=== PATIENT | male | born 1940 | race African-American/Black ===

== ENCOUNTER 2021-05-17 15:35 | Inpatient (IN) | payer BC, MEDICARE ==
[~2021-05-17] VITALS: Ht 180.3 cm; Wt 81.6 kg
[2021-05-17] MEDS: SODIUM CHLORIDE 0.9% 1,000 ML IV SCH (03:00)
[~2021-05-17 15:35] MED LIST: LEVO500T89 PO; SIMV10TA97 PO; SUCR1TAB PO
[2021-05-17] MEDS ORDERED: NAPROXEN 250MG TABLET PO ONE (17:30)
[2021-05-17] MEDS ORDERED: MORPHINE SULFATE 4 MG/ML CPJ (NOT FOR IM USE) IV STA (18:19)
[2021-05-17] MEDS ORDERED: ONDANSETRON HCL 4MG/2ML INJ IV STA (18:19)
[2021-05-17] MEDS ORDERED: KETOROLAC 30MG/ML VIAL IV STA (18:19)
[2021-05-17 18:39] LABS: BASOPHILS % 0.5 % (0.0-2.0); EOSINOPHILS % 3.4 % (0.0-5.0); HEMATOCRIT. 42.9 % (42.0-52.0); HEMOGLOBIN. 14.1 g/dL (14.0-18.0); LYMPHOCYTES % 18.8 % (20.0-50.0); MEAN CORPUSCULAR HEMOGLOBIN 26.7 pg (28.0-32.0); MEAN PLATELET VOLUME 8.4 fl (7.4-10.4); MONOCYTES % 11.1 % (2.0-8.0); NEUTROPHILS % 66.2 % (40.0-76.0); PLATELET 170 x1000/uL (130-400); RED BLOOD CELL COUNT 5.29 mill/uL (4.7-6.1); RED CELL DISTRIBUTION WIDTH 14.4 % (11.6-14.6)
[2021-05-17 18:44] LABS: CHLORIDE 103 mEq/L (98-107)
[2021-05-17 18:50] LABS: PROTHROMBIN TIME 10.4 sec (9.6-11.0)
[2021-05-17] MEDS ORDERED: ONDANSETRON HCL 4MG/2ML INJ IV PRN (19:45)
[2021-05-17] MEDS ORDERED: ACETAMINOPHEN 325MG TABLET PO PRN (19:45)
[2021-05-17] MEDS ORDERED: ZOLPIDEM TARTRATE 5MG TABLET PO PRN (19:45)
[2021-05-17] MEDS ORDERED: DIPHENHYDRAMINE 50MG/ML VIAL IV PRN (19:45)
[2021-05-17] MEDS ORDERED: CLONIDINE 0.1MG TABLET PO PRN (19:45)
[2021-05-17] MEDS ORDERED: DEXTROSE 50% WATER 50ML SYRINGE IV PRN (19:45)
[2021-05-17] MEDS: BLOOD SUGAR DIAGNOSTIC STRIP TEST SCH (21:00)
[2021-05-17] MEDS ORDERED: INSULIN GLARGINE UD 100 UNITS/ML SYR SUBCUT SCH (22:00)
[2021-05-17] MEDS: SODIUM CHLORIDE 0.9% INJ 3ML FLUSH IVF SCH (22:00)
[2021-05-18] MEDS: SUCRALFATE 1 G/10 ML UDC PO SCH ×3 (00:47→21:31)
[2021-05-18 01:30] VITALS: BP 132/76
[2021-05-18] MEDS: SODIUM CHLORIDE 0.9% 1,000 ML IV SCH (03:00)
[2021-05-18] MEDS ORDERED: INSU100I13 SUBCUT (03:25)
[2021-05-18 04:00] VITALS: BP 129/53
[2021-05-18] MEDS: SODIUM CHLORIDE 0.9% INJ 3ML FLUSH IVF SCH ×3 (06:36→21:32)
[2021-05-18] MEDS: BLOOD SUGAR DIAGNOSTIC STRIP TEST SCH ×4 (06:36→20:11)
[2021-05-18 08:00] VITALS: BP 119/55
[2021-05-18] MEDS: INSULIN LISPRO 100 UNITS/ML SUBCUT SCH ×5 (08:28→21:31)
[2021-05-18 12:00] VITALS: BP 143/68
[2021-05-18 16:00] VITALS: BP 144/75
[2021-05-18 20:00] VITALS: BP 124/59
[2021-05-18] MEDS: INSULIN GLARGINE UD 100 UNITS/ML SYR SUBCUT SCH (21:32)
[2021-05-18] MEDS: ACETAMINOPHEN 325MG TABLET PO PRN (23:46)
[2021-05-19] VITALS: BP 128/59
[2021-05-19] MEDS: ACETAMINOPHEN 325MG TABLET PO PRN (00:46)
[2021-05-19 04:00] VITALS: BP 135/74
[2021-05-19] MEDS: BLOOD SUGAR DIAGNOSTIC STRIP TEST SCH ×4 (06:12→21:00)
[2021-05-19] MEDS: SODIUM CHLORIDE 0.9% INJ 3ML FLUSH IVF SCH ×3 (06:12→22:53)
[2021-05-19] MEDS: INSULIN LISPRO 100 UNITS/ML SUBCUT SCH ×4 (06:14→22:52)
[2021-05-19] MEDS ORDERED: MORPHINE SULFATE/PF 1MG/ML 10ML AMP ONE (06:34)
[2021-05-19] MEDS ORDERED: EPINEPHRINE 1:1000 1 MG/ML AMP ONE (06:35)
[2021-05-19] MEDS ORDERED: LIDOCAINE HCL/EPINEPHRINE 1%-EPI 1:100,000 20 ML VIAL ONE (06:35)
[2021-05-19] MEDS ORDERED: BUPIVACAINE HCL/PF 0.25% (2.5MG/ML) 10ML ONE (06:35)
[2021-05-19] MEDS ORDERED: KETOROLAC 30MG/ML VIAL ONE (06:35)
[2021-05-19] MEDS ORDERED: POLYMYXIN B SULFATE 500000 UNITS/VIAL ONE (06:36)
[2021-05-19] MEDS ORDERED: BUPIVACAINE HCL/PF 0.5% (5MG/ML) 10ML ONE (06:36)
[2021-05-19] MEDS ORDERED: VANCOMYCIN HCL 1 GM/VIAL ONE (06:36)
[2021-05-19] MEDS ORDERED: ROPIVACAINE HCL 10MG/ML 20 ML VIAL EPI ONE ×2 (06:36→08:22)
[2021-05-19] MEDS ORDERED: TRANEXAMIC ACID 1,000 MG in SODIUM CHLORIDE 0.9% 100 ML IV SCH (07:00)
[2021-05-19] MEDS ORDERED: FENTANYL CITRATE/PF 50MCG/ML 2ML VIAL ONE ×2 (07:43→09:15)
[2021-05-19] MEDS ORDERED: NEOSTIGMINE METHYLSULFATE 1MG/ML 10 ML VIAL ONE (07:43)
[2021-05-19] MEDS ORDERED: ROCURONIUM BROMIDE 10MG/ML VIAL 5ML IV ONE (07:43)
[2021-05-19] MEDS ORDERED: PROPOFOL 200MG/20ML VIAL IV ONE (07:43)
[2021-05-19] MEDS ORDERED: SODIUM CHLORIDE 0.9% 10ML VIAL ONE (07:44)
[2021-05-19] MEDS ORDERED: SUCCINYLCHOLINE CHLORIDE 200MG/10ML IV ONE (07:44)
[2021-05-19] MEDS ORDERED: GLYCOPYRROLATE 0.2 MG/ML 2ML VIAL ONE (07:44)
[2021-05-19] MEDS ORDERED: PHENYLEPHRINE HCL 10 MG/ML 1ML (IV VIAL) IV ONE (07:44)
[2021-05-19] MEDS ORDERED: METOCLOPRAMIDE HCL 10MG/2ML VIAL ONE (07:44)
[2021-05-19] MEDS ORDERED: MIDAZOLAM HCL 2 MG/2 ML VIAL ONE (07:44)
[2021-05-19] MEDS ORDERED: ONDANSETRON HCL 4MG/2ML INJ ONE (07:44)
[2021-05-19] MEDS ORDERED: CEFAZOLIN SODIUM 1000MG/VIAL ONE (07:44)
[2021-05-19] MEDS: SUCRALFATE 1 G/10 ML UDC PO SCH ×2 (09:00→22:46)
[2021-05-19] MEDS ORDERED: HYDROMORPHONE HCL/PF 2MG/ML CPJ IV PRN (09:15)
[2021-05-19] MEDS ORDERED: ONDANSETRON HCL 4MG/2ML INJ IV PRN (09:15)
[2021-05-19] MEDS ORDERED: SODIUM CHLORIDE 0.9% 1,000 ML IV ONE (09:15)
[2021-05-19] MEDS ORDERED: MORPHINE SULFATE 2 MG/ML CPJ (NOT FOR IM USE) IV PRN (09:15)
[2021-05-19] MEDS ORDERED: MEPERIDINE HCL/PF 25MG/ML CPJ IV PRN ×2 (09:15)
[2021-05-19] MEDS ORDERED: KETOROLAC 30MG/ML VIAL IV PRN (09:30)
[2021-05-19] MEDS ORDERED: CEFAZOLIN 1000MG PREMIX 50 ML IV SCH (09:30)
[2021-05-19 12:00] VITALS: BP 130/66
[2021-05-19] MEDS: CEFAZOLIN 1000MG PREMIX 50 ML IV SCH ×2 (14:53→22:53)
[2021-05-19 16:00] VITALS: BP 133/78
[2021-05-19 20:00] VITALS: BP 137/70
[2021-05-19] MEDS: INSULIN GLARGINE UD 100 UNITS/ML SYR SUBCUT SCH (22:00)
[2021-05-20] VITALS: BP 135/69
[2021-05-20 04:00] VITALS: BP 140/69
[2021-05-20] MEDS: CEFAZOLIN 1000MG PREMIX 50 ML IV SCH ×3 (06:21→21:32)
[2021-05-20] MEDS: SODIUM CHLORIDE 0.9% INJ 3ML FLUSH IVF SCH ×3 (06:21→21:29)
[2021-05-20] MEDS: BLOOD SUGAR DIAGNOSTIC STRIP TEST SCH ×4 (06:26→20:56)
[2021-05-20 08:00] VITALS: BP 123/70
[2021-05-20] MEDS: ACETAMINOPHEN 325MG TABLET PO PRN (08:08)
[2021-05-20] MEDS: INSULIN LISPRO 100 UNITS/ML SUBCUT SCH ×4 (08:12→21:30)
[2021-05-20] MEDS: SUCRALFATE 1 G/10 ML UDC PO SCH ×2 (09:00→21:00)
[2021-05-20 12:00] VITALS: BP 119/65
[2021-05-20 16:00] VITALS: BP 143/72
[2021-05-20 20:00] VITALS: BP 140/75
[2021-05-20] MEDS: INSULIN GLARGINE UD 100 UNITS/ML SYR SUBCUT SCH (21:31)
[2021-05-21] VITALS: BP 131/68
[2021-05-21 04:00] VITALS: BP 129/74
[2021-05-21] MEDS: CEFAZOLIN 1000MG PREMIX 50 ML IV SCH ×2 (05:33→14:49)
[2021-05-21] MEDS: BLOOD SUGAR DIAGNOSTIC STRIP TEST SCH ×4 (06:27→21:11)
[2021-05-21 08:03] VITALS: BP 124/73
[2021-05-21] MEDS: INSULIN LISPRO 100 UNITS/ML SUBCUT SCH ×4 (08:15→21:33)
[2021-05-21] MEDS: SUCRALFATE 1 G/10 ML UDC PO SCH ×2 (09:00→20:17)
[2021-05-21 11:45] VITALS: BP 129/75
[2021-05-21] MEDS: SODIUM CHLORIDE 0.9% INJ 3ML FLUSH IVF SCH ×2 (14:50→21:11)
[2021-05-21 16:13] VITALS: BP 131/80
[2021-05-21 20:00] VITALS: BP 140/69
[2021-05-21] MEDS: INSULIN GLARGINE UD 100 UNITS/ML SYR SUBCUT SCH (21:34)
[2021-05-22] VITALS: BP 113/62
[2021-05-22 04:00] VITALS: BP 121/66
[2021-05-22] MEDS: SODIUM CHLORIDE 0.9% INJ 3ML FLUSH IVF SCH ×3 (06:37→21:51)
[2021-05-22] MEDS: BLOOD SUGAR DIAGNOSTIC STRIP TEST SCH ×4 (06:41→20:23)
[2021-05-22 08:00] VITALS: BP 124/62
[2021-05-22] MEDS: SUCRALFATE 1 G/10 ML UDC PO SCH ×2 (08:41→20:22)
[2021-05-22] MEDS: INSULIN LISPRO 100 UNITS/ML SUBCUT SCH ×4 (08:41→21:00)
[2021-05-22 12:00] VITALS: BP 128/70
[2021-05-22 16:00] VITALS: BP 128/70
[2021-05-22 20:00] VITALS: BP 119/65
[2021-05-22] MEDS: INSULIN GLARGINE UD 100 UNITS/ML SYR SUBCUT SCH (21:56)
[2021-05-23] VITALS: BP 130/68
[2021-05-23 04:00] VITALS: BP 131/64
[2021-05-23] MEDS: SODIUM CHLORIDE 0.9% INJ 3ML FLUSH IVF SCH ×2 (05:49→14:00)
[2021-05-23] MEDS: BLOOD SUGAR DIAGNOSTIC STRIP TEST SCH ×3 (07:01→17:20)
[2021-05-23 08:11] VITALS: BP 138/79
[2021-05-23] MEDS: SUCRALFATE 1 G/10 ML UDC PO SCH (08:43)
[2021-05-23] MEDS: INSULIN LISPRO 100 UNITS/ML SUBCUT SCH ×3 (08:47→17:53)
[2021-05-23 12:06] VITALS: BP 125/72
[2021-05-23 16:13] VITALS: BP 106/84
[2021-05-23 18:02] VITALS: BP 108/69
== END 2021-05-23 19:10 | disposition home health service (06) | DRG 522 ==
LOC: ER 15:35 → 6EST 18:22 → EDBEDREQ 22:37 → ENRESERV 23:19 → 6EST 05-18 03:05 → UNDODISIN 05-21 13:47 → 6EST 05-21 14:35
PROVIDERS: ADMIT Internal Medicine; ATTEND Internal Medicine
PROC: 0SRR0JA Replacement of Right Hip Joint, Femoral Surface with Synthetic Substitute, Uncemented, Open Approach (ICD-10-PCS; principal; 2021-05-19)
DX: S72.001A Fracture of unspecified part of neck of right femur, initial encounter for closed fracture (principal); E11.51 Type 2 diabetes mellitus with diabetic peripheral angiopathy without gangrene; Z86.73 Personal history of transient ischemic attack (TIA), and cerebral infarction without residual deficits; I25.10 Atherosclerotic heart disease of native coronary artery without angina pectoris; E78.00 Pure hypercholesterolemia, unspecified; K21.9 Gastro-esophageal reflux disease without esophagitis; Z20.822 Contact with and (suspected) exposure to COVID-19; W01.0XXA Fall on same level from slipping, tripping and stumbling without subsequent striking against object, initial encounter; Z79.899 Other long term (current) drug therapy; Z82.49 Family history of ischemic heart disease and other diseases of the circulatory system; Z83.3 Family history of diabetes mellitus; Y93.89 Activity, other specified; Y99.8 Other external cause status; Z79.2 Long term (current) use of antibiotics; Y92.098 Other place in other non-institutional residence as the place of occurrence of the external cause; Z79.4 Long term (current) use of insulin
CPT/HCPCS: 36415; 71045; 72170; 73521; 80053; 82962; 85025; 86850; 86900; 87426; 88304; 88311; 93005; 97110; 97116; 97162; 97166; 97530; 97535; 99285; J0330; J0690; J1815; J1885; J2250; J2274; J2370; J2405; J2704; J2710; J2765; J2795; J3010; J3370; J3490; J7040; J7050